=== PATIENT | female | born 1945 | race Caucasian/White ===

== ENCOUNTER 2016-08-26 18:43 | Emergency (ER) | payer MEDICARE ==
--- NOTE | ~2016-08-26 | CR142 ---
[facility] A Service of [facility] & [facility] RADIOLOGY TEXT RESULTS PATIENT: ALF BURRIS LOCATION: [facility] : 45 UNIT #: [id number] AGE: [address]: Marco Sánchez MD SEX: F ORDER DR: [id number] [facility] [address] [place], [place] [address] [id number] E MR#: [id number] Acc #: [id number] NAME: ALF BURRIS. : 1945 SEX: F STUDY DATE/TIME: 08/26/2016 23:11 UNIT: [facility] ROOM: STUDY DESCRIPTION: CR Hand Min 3 Views Rt Attending Physician: Marco Sánchez M.D. Ordering Physician: Marco Sánchez M.D. Primary Care Physician: Primary Care Physician No MEDICAL IMAGING REPORT This report is preliminary unless electronic signature is present EXAM Right hand INDICATION Right hand pain after fall today. FINDINGS AP, lateral, and oblique projections of the hand show good mineralization with normal carpal, metacarpal, and phalangeal anatomy without indication of fracture, dislocation, or soft tissue radiopaque foreign body. IMPRESSION Normal hand. Dictated by... Humberto Payne M.D. THIS IS AN ELECTRONICALLY VERIFIED REPORT Humberto Payne M.D. at 08/28/2016 5:01 AM BENNY/alfa TD: 08/28/2016 00:12 JOB #: [id number] MEDICAL IMAGING REPORT Page 1 of 1 COPY
--- NOTE | ~2016-08-26 | CT71 ---
[facility] A Service of [facility] RADIOLOGY TEXT RESULTS PATIENT: ALF BURRIS LOCATION: [facility] : 45 UNIT #: [id number] AGE: [address]: Marco Sánchez MD SEX: F ORDER DR: [id number] [facility] [address] [place], [place] [address] [id number] E MR#: [id number] Acc #: [id number] NAME: ALF BURRIS. : 1945 SEX: F STUDY DATE/TIME: 08/26/2016 22:11 UNIT: [facility] ROOM: STUDY DESCRIPTION: CT Head Wo Contrast Attending Physician: Marco Sánchez M.D. Ordering Physician: Marco Sánchez M.D. Primary Care Physician: Primary Care Physician No MEDICAL IMAGING REPORT This report is preliminary unless electronic signature is present EXAM CT scan of the head without contrast. INDICATION Fell today and hit right side of head with pain since fall. This CT exam was performed with one or more of the following radiation dose reduction techniques: automatic exposure control, adjustment of mA and/or kV according to patient size, and iterative reconstruction. FINDINGS Axial noncontrast images were obtained from the skull base to the vertex. Ventricular size and configuration are normal. There is no evidence of acute infarct or hemorrhage. There are no extra-axial fluid collections. No mass lesion or mass effect is seen. There are no skull fractures. IMPRESSION Normal noncontrast head CT. Dictated by... Humberto Payne M.D. THIS IS AN ELECTRONICALLY VERIFIED REPORT Humberto Payne M.D. at 08/28/2016 5:00 AM BENNY/lafa TD: 08/27/2016 22:26 JOB #: [id number] MEDICAL IMAGING REPORT [facility] A Service of [facility] & [facility] RADIOLOGY TEXT RESULTS PATIENT: ALF BURRIS LOCATION: [facility] : 45 UNIT #: [id number] AGE: [address]: Marco Sánchez MD SEX: F ORDER DR: Page 1 of 1 COPY
--- NOTE | ~2016-08-26 | CT52 ---
[facility] A Service of [facility] & [facility] RADIOLOGY TEXT RESULTS PATIENT: ALF BURRIS LOCATION: [facility] : 45 UNIT #: [id number] AGE: [address]: Marco Sánchez MD SEX: F ORDER DR: [id number] [facility] [address] [place], [place] [address] [id number] E MR#: [id number] [facility] #: [id number] NAME: ALF BURRIS. : 1945 SEX: F STUDY DATE/TIME: 08/26/2016 21:41 UNIT: [facility] ROOM: STUDY DESCRIPTION: CT Cervical Spine Wo Cont Attending Physician: Marco Sánchez M.D. Ordering Physician: Marco Sánchez M.D. Primary Care Physician: Primary Care Physician No MEDICAL IMAGING REPORT This report is preliminary unless electronic signature is present EXAM Cervical spine CT, 08/26/2016 HISTORY Fall today. Hit right side of face. Abrasions to right orbit, cheek and lip, nose. States left-sided neck pain since the fall 12:[address] exam was performed with one or more of the following radiation dose reduction techniques: automatic exposure control, adjustment of mA and/or kV according to patient size, and iterative reconstruction. FINDINGS CT cervical spine performed. Bone and soft tissue windows reviewed. Sagittal and coronal reconstructions performed. No comparisons. Visualized brain normal. Visualized paranasal sinuses and mastoid air cells clear. Visualized nasopharyngeal, oropharyngeal, pharyngeal mucosal, retropharyngeal spaces larynx, subglottic airway, superior mediastinum lung apices unremarkable. Thyroid visualized. Submandibular and parotid glands unremarkable. No adenopathy. No traumatic appearing paraspinal soft tissue abnormality. Alignment in frontal projection normal. In the lateral projection there is straightening of the normal cervical lordosis with degenerative 2 mm anterolisthesis C5 on C6, felt secondary to disc and facet degenerative changes at this level. Vertebral body heights normal. Mild disc space narrowing C2-C3, C5-C6. Moderate to marked disc space narrowing C3-C4, C4-C5, C6-C7. Multilevel degenerative changes. No fracture. C2-C3: Small posterior disc bulge. No cord contact. No significant canal narrowing. Neural foramina normal. C3-C4: Broad-based posterior concentric disc osteophyte complex. [facility] A Service of [facility] & [facility] RADIOLOGY TEXT RESULTS PATIENT: ALF BURRIS LOCATION: [facility] : 45 UNIT #: [id number] AGE: [address]: Marco Sánchez MD SEX: F ORDER DR: Anterior cord contact. No cord compression. Uncovertebral and facet degenerative changes. Moderate bilateral foraminal narrowing. Bilateral exiting nerve irritation is a aspiration. C4-C5: Mild posterior concentric disc osteophyte complex. No spinal stenosis. Left greater than right facet and uncovertebral degenerative change. Mild to moderate left foraminal narrowing. C5-C6: Anterolisthesis as noted. No disc bulge or herniation. Spinal canal diameter within normal limits. Right neural foramen unremarkable. The anterolisthesis in conjunction with facet and uncovertebral degenerative change is causing severe narrowing of the left neural foramen. Exiting nerve impingement likely. C6-C7: Relatively mild posterior concentric disc osteophyte complex. Narrowing anterior thecal space. Anterior cord contact without compression. Mild central spinal canal narrowing. Mild bilateral foraminal narrowing due to uncovertebral degenerative change. C7-T1, T1-T2, T2-T3: Unremarkable. IMPRESSION 1. No traumatic fracture or malalignment. 2. Straightening of the normal cervical lordosis with degenerative anterolisthesis C5 on C6 by about 2 mm. 3. Multilevel degenerative change. Please see complete [id number] description in body of report above. Most pronounced findings as follows: Posterior disc osteophyte complex C3-C4. Anterior cord contact with some straightening of the anterior cord contour. Narrowing bilateral lateral recesses. Uncovertebral and facet degenerative changes with at least moderate bilateral foraminal narrowing. Exiting nerve irritation or impingement bilaterally is a consideration. 4. Asymmetrically prominent facet and uncovertebral degenerative change at the C4-C5 and C5-C6 levels causing moderate to marked left C4-C5 foraminal narrowing and severe left C5-C6 foraminal narrowing. Exiting nerve irritation or srikanth impingement at these levels is a consideration. See remainder of spinal findings in body report above. 5. No traumatic appearing paraspinal soft tissue abnormality. Dictated by... Emerson Kohli M.D. THIS IS AN ELECTRONICALLY VERIFIED REPORT Emerson Kohli M.D. at 08/28/2016 6:54 PM COLEMAN/alfa TD: 08/27/2016 22:47 [facility]. [facility] A Service of [facility] RADIOLOGY TEXT RESULTS PATIENT: ALF BURRIS LOCATION: [facility] #: [id number] : 45 UNIT #: [id number] AGE: [address]: Marco Sánchez MD SEX: F ORDER DR: JERICHO #: [id number] MEDICAL IMAGING REPORT Page 1 of 1 COPY
--- NOTE | ~2016-08-26 | CT101 ---
[facility] A Service of [facility] & [facility] RADIOLOGY TEXT RESULTS PATIENT: ALF BURRIS LOCATION: [facility] : 45 UNIT #: [id number] AGE: [address]: Marco Sánchez MD SEX: F ORDER DR: [id number] [facility] [address] [place], [place] [address] [id number] E MR#: [id number] [facility] #: [id number] NAME: ALF BURRIS. : 1945 SEX: F STUDY DATE/TIME: 08/26/2016 22:11 UNIT: [facility] ROOM: STUDY DESCRIPTION: CT Maxillofacial Area Wo Cont Attending Physician: Marco Sánchez M.D. Ordering Physician: Marco Sánchez M.D. Primary Care Physician: Primary Care Physician No MEDICAL IMAGING REPORT This report is preliminary unless electronic signature is present EXAM CT facial bones, 08/26/2016 HISTORY Fall today. Hit right side of face, abrasions to right orbit, cheek, lip and nose. States left-sided neck pain since the fall. This CT exam was performed with one or more of the following radiation dose reduction techniques: automatic exposure control, adjustment of mA and/or kV according to patient size, and iterative reconstruction. FINDINGS CT facial bones performed. Bone and soft tissue windows reviewed. Sagittal and coronal reconstructions performed. Please see dedicated CTs of the head and cervical spine for full valuation of these regions. Visualized portions of brain unremarkable. Intraorbital soft tissues unremarkable. The nasopharyngeal, visualized oropharyngeal, pharyngeal mucosal retropharyngeal spaces, larynx, subglottic airway, thyroid, submandibular parotid glands unremarkable. No adenopathy. Intraorbital soft tissues unremarkable. Visualized paranasal sinuses and mastoid air cells show minimal mucosal thickening in the left ethmoid air cells. The superficial facial soft tissues show some very subtle soft tissue swelling in the right premaxillary/prezygomatic region. There is no soft tissue defect, subcutaneous air or radiodense foreign body. Visualized bones of calvaria are intact. The nasal bones are intact. Nasal septum intact with mild deviation to left. Ostiomeatal complexes patent. The orbital bony structures are intact. Zygomas, zygomatic arches, pterygoid plates intact. Degenerative changes in the temporomandibular joints. The mandible is intact. Streak artifact from multifocal dental hardware. Cavernous carotid arterial calcifications. Visualized cervical spine shows no acute-appearing abnormality. STS. [facility] A Service of [facility] RADIOLOGY TEXT RESULTS PATIENT: ALF BURRIS [facility] [id number] : 45 UNIT #: [id number] AGE: [address]: Marco Sánchez MD SEX: F ORDER DR: IMPRESSION 1. No facial bone fracture. 2. There is some very mild soft tissue swelling right prezygomatic/premaxillary region without soft tissue defect, subcutaneous air radiodense foreign bodies seen. 3. Minimal mucosal thickening ethmoid air cells. 4. Degenerative changes bilateral temporomandibular joints. 5. Please see dedicated CT of head and cervical spine for full evaluation of these regions. Dictated by... Emerson Kohli M.D. THIS IS AN ELECTRONICALLY VERIFIED REPORT Emerson Kohli M.D. at 08/27/2016 10:48 PM COLEMAN/alfa TD: 08/27/2016 22:36 JOB #: [id number] MEDICAL IMAGING REPORT Page 1 of 1 COPY
== END 2016-08-26 23:35 | disposition home or self-care (01) ==
LOC: CED 18:43
DX: S00.83XA Contusion of other part of head, initial encounter (principal); M79.644 Pain in right finger(s); W01.0XXA Fall on same level from slipping, tripping and stumbling without subsequent striking against object, initial encounter; Y92.9 Unspecified place or not applicable
CPT/HCPCS: 70450; 70486; 72125; 73130; 99284